=== PATIENT | male | born 1970 | race Caucasian/White ===

== ENCOUNTER 2018-07-16 16:49 | Emergency (ER) | payer MEDICAID ==
[~2018-07-16] VITALS: Ht 170.2 cm; Wt 84.0 kg
[2018-07-16] MEDS ORDERED: IBUPROFEN 800MG TABLET PO ONE (18:30)
[2018-07-16 19:23] VITALS: BP 158/98
== END 2018-07-16 22:47 | disposition home or self-care (01) ==
LOC: ER 17:00
DX: M79.641 Pain in right hand (principal); E11.9 Type 2 diabetes mellitus without complications; E78.00 Pure hypercholesterolemia, unspecified; I10 Essential (primary) hypertension; Z98.890 Other specified postprocedural states
CPT/HCPCS: 29130; 73130; 99283